=== PATIENT | male | born 1940 | race Caucasian/White ===

== ENCOUNTER 2020-06-18 00:14 | Day surgery (SDCO) | payer OTHER ==
[~2020-06-18 00:14] MED LIST: ATARAX25 MG PO; BUSPIRONE HCL15 MG PO; COUMADIN2 MG PO; FLOMAX0.4 MG PO; GUMMY1 EACH PO; HYDRALAZINE25 MG PO; LAMICTAL100 MG PO; LEVAQUIN500 MG PO; LEXAPRO 10MG TA10 MG PO; MEDROL 4MG DOSEP4 MG PO; NORCO 5-325 TA1 EACH PO; NORVASC5 MG PO; OMEPRAZOLE40 MG PO; PAXIL10 MG PO; PAXIL20 MG PO; PEPCID AC20 MG PO; PREDNISONE5 MG PO; PRINIVIL20 MG PO; TAMSULOSIN HCL0.4 MG PO; VITAMIN B-121000 MC1 PO; VITAMIN D400 UNI2 PO; XANAX0.25 MG PO; ZOFRAN4 MG SL; ZOFRAN8 MG PO; ZYTIGA500 MG PO
[2020-06-18 01:04] LABS: BASOPHIL 0.6 % (0-2); EOSINOPHIL 2.4 % (0-7); HCT 40.4 % (42.0-52.0); LYMPHOCYTE 13.9 % (15-48); MCH 30.8 pg (25.0-31.0); MCHC 32.2 g/dL (32.0-36.0); MCV 95.7 fL (78.0-100.0); MONOCYTE 8.8 % (0-12); NEUTROPHIL 73.9 % (41-80); NRBC 0; PLT 450 K/uL (150-400); RBC 4.22 M/uL (4.70-6.00); RDW 12.8 % (11.5-14.0); WBC 10.2 K/uL (4.0-10.5)
[2020-06-18 01:20] LABS: ALBUMIN 2.5 g/dL (3.4-5.0); BILIRUBIN - TOTAL 0.4 mg/dL (0.2-1.0); BUN/CREAT RATIO (CALC) 7.3 RATIO; CREATININE 1.09 mg/dL (0.67-1.17); GLOBULIN (CALCULATION) 4.2 g/dL; TOTAL PROTEIN 6.7 g/dL (6.4-8.2)
[2020-06-18 01:37] LABS: INR 1.49 (0.9-1.2); PROTHROMBIN TIME 17.1 SECONDS (11.4-13.6)
[2020-06-18 02:48] LABS: CORONAVIRUS 2019 SARS-COV-2 NEGATIVE (NEGATIVE)
[2020-06-18 02:49] LABS: INFLUENZA A NAA NEGATIVE (NEGATIVE)
[2020-06-18 04:53] LABS: BILIRUBIN NEGATIVE (NEGATIVE); BLOOD 3+ Ery/uL (NEGATIVE); COLOR YELLOW (YELLOW); GLUCOSE (U) NORMAL (NORMAL); LEUKOCYTES NEGATIVE Leu/uL (NEGATIVE); NITRITE NEGATIVE (NEGATIVE); PROTEIN NEGATIVE (NEGATIVE); SPECIFIC GRAVITY 1.015 (1.001-1.030); UROBILINOGEN 0.2 mg/dL (0.2-1.0)
[2020-06-18 04:54] LABS: CLARITY SLIGHTLY HAZY (CLEAR)
[2020-06-18 05:00] LABS: BACTERIA TRACE; SQUAMOUS EPITHELIAL CELLS RARE; URINARY RBC 20-50
[2020-06-18] MEDS ORDERED: ZYTIGA500 MG PO (11:31)
[2020-06-18] MEDS ORDERED: QUETIAPINE FUM300 MG PO (11:32)
[2020-06-18] MEDS ORDERED: INDERAL20 MG PO (11:34)
[2020-06-19 07:00] LABS: BASOPHIL 0.8 % (0-2); EOSINOPHIL 3.5 % (0-7); HCT 33.3 % (42.0-52.0); HGB 10.5 g/dl (13.2-18.0); LYMPHOCYTE 14.4 % (15-48); MCHC 31.5 g/dL (32.0-36.0); MCV 98.2 fL (78.0-100.0); MPV 9.1 fL (6.0-9.5); NRBC 0; PLT 334 K/uL (150-400); RBC 3.39 M/uL (4.70-6.00); RDW 13.1 % (11.5-14.0); WBC 7.2 K/uL (4.0-10.5)
[2020-06-19 07:08] LABS: INR 1.68 (0.9-1.2); PROTHROMBIN TIME 18.8 SECONDS (11.4-13.6)
[2020-06-19 07:16] LABS: BUN/CREAT RATIO (CALC) 5.4 RATIO; CREATININE 0.92 mg/dL (0.67-1.17); POTASSIUM 3.4 mmol/L (3.5-5.1)
[2020-06-19] MEDS ORDERED: PROTONIX 40MG T40 MG PO (11:26)
[2020-07-19] MEDS ORDERED: METRONIDAZOLE500 MG PO (13:06)
[2020-07-19] MEDS ORDERED: CIPRO500 MG PO (13:06)
[2020-07-19] MEDS ORDERED: PROTONIX 40MG T40 MG PO (13:06)
== END 2020-06-19 13:25 | disposition home or self-care (01) ==
LOC: FER 00:14 → FMS 04:52
PROVIDERS: Emergency Medicine; Internal Medicine; ADMIT Internal Medicine
DX: K29.80 Duodenitis without bleeding (principal); K21.9 Gastro-esophageal reflux disease without esophagitis; C61 Malignant neoplasm of prostate; C79.51 Secondary malignant neoplasm of bone; K44.9 Diaphragmatic hernia without obstruction or gangrene; I82.91 Chronic embolism and thrombosis of unspecified vein; I10 Essential (primary) hypertension; R19.7 Diarrhea, unspecified; R10.84 Generalized abdominal pain; Z86.718 Personal history of other venous thrombosis and embolism; Z79.01 Long term (current) use of anticoagulants; Z96.0 Presence of urogenital implants; Z20.822 Contact with and (suspected) exposure to COVID-19; Z87.891 Personal history of nicotine dependence; Z98.890 Other specified postprocedural states
CPT/HCPCS: 36415; 80048; 80053; 81001; 82150; 83690; 84484; 85025; 85610; 87339; 93005; C9113; G0378; J2405; J2550; J7030; Q9967; U0002

== ENCOUNTER 2020-06-22 12:32 | Emergency (ER) | payer OTHER ==
[~2020-06-22 12:32] MED LIST changes: +INDERAL20 MG PO; +PROTONIX 40MG T40 MG PO; +QUETIAPINE FUM300 MG PO
[2020-06-22 14:44] LABS: BASOPHIL 0.5 % (0-2); EOSINOPHIL 1.3 % (0-7); HCT 37.1 % (42.0-52.0); LYMPHOCYTE 9.1 % (15-48); MCH 31.1 pg (25.0-31.0); MCHC 32.3 g/dL (32.0-36.0); MCV 96.1 fL (78.0-100.0); MONOCYTE 5.9 % (0-12); MPV 9.1 fL (6.0-9.5); NEUTROPHIL 82.9 % (41-80); NRBC 0; PLT 428 K/uL (150-400); RBC 3.86 M/uL (4.70-6.00); RDW 13.2 % (11.5-14.0); WBC 8.7 K/uL (4.0-10.5)
[2020-06-22 14:59] LABS: INR 1.59 (0.9-1.2)
[2020-06-22 15:01] LABS: ALBUMIN 2.4 g/dL (3.4-5.0); BILIRUBIN - TOTAL 0.2 mg/dL (0.2-1.0); GLOBULIN (CALCULATION) 3.9 g/dL; TOTAL PROTEIN 6.3 g/dL (6.4-8.2)
[2020-06-22 15:25] LABS: BILIRUBIN NEGATIVE (NEGATIVE); BLOOD 1+ Ery/uL (NEGATIVE); CLARITY CLEAR (CLEAR); COLOR YELLOW (YELLOW); GLUCOSE (U) NORMAL (NORMAL); LEUKOCYTES NEGATIVE Leu/uL (NEGATIVE); NITRITE NEGATIVE (NEGATIVE); PROTEIN NEGATIVE (NEGATIVE); UROBILINOGEN 0.2 mg/dL (0.2-1.0)
[2020-06-22 15:33] LABS: SQUAMOUS EPITHELIAL CELLS RARE
[2020-06-22] MEDS ORDERED: ZOFRAN4 M1 PO (17:54)
[2020-07-19] MEDS ORDERED: METRONIDAZOLE500 MG PO (13:06)
[2020-07-19] MEDS ORDERED: CIPRO500 MG PO (13:06)
[2020-07-19] MEDS ORDERED: PROTONIX 40MG T40 MG PO (13:06)
== END 2020-06-22 18:27 | disposition home or self-care (01) ==
LOC: FER 12:32
PROVIDERS: Emergency Medicine
DX: R11.2 Nausea with vomiting, unspecified (principal); R19.7 Diarrhea, unspecified; R63.0 Anorexia; I10 Essential (primary) hypertension; Z86.718 Personal history of other venous thrombosis and embolism; Z85.46 Personal history of malignant neoplasm of prostate; Z79.01 Long term (current) use of anticoagulants; Z79.899 Other long term (current) drug therapy
CPT/HCPCS: 36415; 80053; 81001; 85025; 85610; 99284; J2405; J7040

== ENCOUNTER 2020-07-01 02:17 | Emergency (ER) | payer OTHER ==
[~2020-07-01 02:17] MED LIST changes: +ZOFRAN4 M1 PO
[2020-07-01 02:49] LABS: INR 1.43 (0.9-1.2); PROTHROMBIN TIME 16.6 SECONDS (11.4-13.6)
[2020-07-01 02:56] LABS: ALBUMIN 2.1 g/dL (3.4-5.0); BILIRUBIN - TOTAL 0.4 mg/dL (0.2-1.0); BUN/CREAT RATIO (CALC) 6.6 RATIO; CREATININE 1.22 mg/dL (0.67-1.17); GLOBULIN (CALCULATION) 3.8 g/dL; POTASSIUM 4.2 mmol/L (3.5-5.1); TOTAL PROTEIN 5.9 g/dL (6.4-8.2)
[2020-07-01 03:00] LABS: BASOPHIL 0.4 % (0-2); EOSINOPHIL 2.3 % (0-7); HGB 10.9 g/dl (13.2-18.0); LYMPHOCYTE 14.9 % (15-48); MCH 30.7 pg (25.0-31.0); MCHC 32.1 g/dL (32.0-36.0); MCV 95.8 fL (78.0-100.0); MONOCYTE 11.3 % (0-12); MPV 9.7 fL (6.0-9.5); NEUTROPHIL 70.7 % (41-80); NRBC 0; PLT 338 K/uL (150-400); RBC 3.55 M/uL (4.70-6.00); RDW 12.8 % (11.5-14.0); WBC 9.5 K/uL (4.0-10.5)
[2020-07-01 04:45] LABS: BILIRUBIN NEGATIVE (NEGATIVE); BLOOD 1+ Ery/uL (NEGATIVE); CLARITY CLEAR (CLEAR); COLOR YELLOW (YELLOW); GLUCOSE (U) NORMAL (NORMAL); LEUKOCYTES NEGATIVE Leu/uL (NEGATIVE); NITRITE NEGATIVE (NEGATIVE); PROTEIN NEGATIVE (NEGATIVE); SPECIFIC GRAVITY 1.015 (1.001-1.030); UROBILINOGEN 0.2 mg/dL (0.2-1.0)
[2020-07-01 04:48] LABS: SQUAMOUS EPITHELIAL CELLS RARE
[2020-07-01] MEDS ORDERED: ONDANSETRON ODT4 MG PO (06:01)
[2020-07-19] MEDS ORDERED: CIPRO500 MG PO (13:06)
[2020-07-19] MEDS ORDERED: PROTONIX 40MG T40 MG PO (13:06)
[2020-07-19] MEDS ORDERED: METRONIDAZOLE500 MG PO (13:06)
== END 2020-07-01 06:16 | disposition home or self-care (01) ==
LOC: FER 02:17
PROVIDERS: Emergency Medicine
DX: R55 Syncope and collapse (principal); R42 Dizziness and giddiness; R11.2 Nausea with vomiting, unspecified; F17.200 Nicotine dependence, unspecified, uncomplicated; Z86.718 Personal history of other venous thrombosis and embolism
CPT/HCPCS: 36415; 70450; 71045; 80053; 81001; 84484; 85025; 85610; 93005; J2405; J7030

== ENCOUNTER 2020-07-13 10:14 | Day surgery (SDCO) | payer OTHER ==
[~2020-07-13 10:14] MED LIST changes: +ONDANSETRON ODT4 MG PO
[2020-07-13 12:23] LABS: BASOPHIL 1.2 % (0-2); EOSINOPHIL 3.3 % (0-7); HCT 42.1 % (42.0-52.0); HGB 13.4 g/dl (13.2-18.0); LYMPHOCYTE 21.5 % (15-48); MCH 30.2 pg (25.0-31.0); MCHC 31.8 g/dL (32.0-36.0); NEUTROPHIL 60.8 % (41-80); NRBC 0; PLT 509 K/uL (150-400); RBC 4.43 M/uL (4.70-6.00); RDW 13.6 % (11.5-14.0); WBC 6.9 K/uL (4.0-10.5)
[2020-07-13 12:26] LABS: INR 1.87 (0.9-1.2); PROTHROMBIN TIME 20.5 SECONDS (11.4-13.6); PTT 30.3 SECONDS (22.2-34.7)
[2020-07-13 12:52] LABS: ALBUMIN 2.7 g/dL (3.4-5.0); BILIRUBIN - TOTAL 0.2 mg/dL (0.2-1.0); BUN/CREAT RATIO (CALC) 9.8 RATIO; CREATININE 1.12 mg/dL (0.67-1.17); GLOBULIN (CALCULATION) 3.6 g/dL; POTASSIUM 4.2 mmol/L (3.5-5.1); TOTAL PROTEIN 6.3 g/dL (6.4-8.2)
[2020-07-13 13:08] LABS: BILIRUBIN NEGATIVE (NEGATIVE); BLOOD TRACE-INTACT Ery/uL (NEGATIVE); CLARITY CLEAR (CLEAR); COLOR YELLOW (YELLOW); GLUCOSE (U) NORMAL (NORMAL); LEUKOCYTES TRACE Leu/uL (NEGATIVE); NITRITE NEGATIVE (NEGATIVE); PROTEIN TRACE (LOW) mg/dL (NEGATIVE); UROBILINOGEN 0.2 mg/dL (0.2-1.0)
[2020-07-13 13:15] LABS: LACTIC ACID 0.8 mmol/L (0.4-1.9)
[2020-07-13 13:18] LABS: SQUAMOUS EPITHELIAL CELLS RARE; URINARY RBC RARE; URINARY WBC RARE
[2020-07-13] MEDS ORDERED: WARFARIN SODIUM1 MG PO (17:17)
[2020-07-14 05:37] LABS: HCT 32.9 % (42.0-52.0); HGB 10.3 g/dl (13.2-18.0); MCH 29.9 pg (25.0-31.0); MCHC 31.3 g/dL (32.0-36.0); MCV 95.4 fL (78.0-100.0); MPV 8.8 fL (6.0-9.5); RBC 3.45 M/uL (4.70-6.00); RDW 13.8 % (11.5-14.0); WBC 6.5 K/uL (4.0-10.5)
[2020-07-14 05:48] LABS: INR 2.07 (0.9-1.2); PROTHROMBIN TIME 22.2 SECONDS (11.4-13.6)
[2020-07-14 05:54] LABS: BUN/CREAT RATIO (CALC) 7.9 RATIO; CREATININE 1.01 mg/dL (0.67-1.17); POTASSIUM 3.8 mmol/L (3.5-5.1)
[2020-07-14] MEDS ORDERED: CARAFATE1 GM PO (12:10)
[2020-07-14] MEDS ORDERED: PROTONIX 40MG T40 MG PO (12:10)
[2020-07-14] MEDS ORDERED: PHENERGAN12.5 M1 PO (12:11)
[2020-07-14] MEDS ORDERED: ZOFRAN4 M1 PO (12:11)
--- NOTE | 2020-07-14 13:18 | NUR ---
DR. ELIAS ORDERED FOR PT., DISCUSSED THIS WITH THE PATIENT. PT. DECLINED HH AT THIS TIME. ADVISED HIM THAT IF HE RECONSIDERES TO PLEASE CONTACT HIS PRIMARY PHYSCIAN. ADVISED ALESIA LEVINE.
[2020-07-14] MEDS ORDERED: WARFARIN SODIUM1 MG PO (13:42)
[2020-07-19] MEDS ORDERED: PROTONIX 40MG T40 MG PO (13:06)
[2020-07-19] MEDS ORDERED: METRONIDAZOLE500 MG PO (13:06)
[2020-07-19] MEDS ORDERED: CIPRO500 MG PO (13:06)
== END 2020-07-14 16:24 | disposition home or self-care (01) ==
LOC: FER 10:14 → FMS 15:04
PROVIDERS: Emergency Medicine; Hospitalist; ADMIT Internal Medicine
DX: K29.80 Duodenitis without bleeding (principal); I10 Essential (primary) hypertension; C76.3 Malignant neoplasm of pelvis; N40.0 Benign prostatic hyperplasia without lower urinary tract symptoms; K21.9 Gastro-esophageal reflux disease without esophagitis; K44.9 Diaphragmatic hernia without obstruction or gangrene; F17.210 Nicotine dependence, cigarettes, uncomplicated; R19.7 Diarrhea, unspecified; Z20.822 Contact with and (suspected) exposure to COVID-19; Z79.01 Long term (current) use of anticoagulants; Z86.718 Personal history of other venous thrombosis and embolism; Z98.890 Other specified postprocedural states; Z96.0 Presence of urogenital implants
CPT/HCPCS: 36415; 80048; 80053; 81001; 83605; 83690; 84145; 84484; 85025; 85610; 85730; 87040; 87088; 93005; 97116; 97161; 97165; 97530-GP; 97535; C9113; G0378; J2405; J7030; J7512; Q9967; U0002

== ENCOUNTER → 2020-07-19 | Day surgery (SDC) | payer OTHER ==
[~2020-07-19] MED LIST changes: +CARAFATE1 GM PO; +CIPRO500 MG PO; +METRONIDAZOLE500 MG PO; +PHENERGAN12.5 M1 PO; +WARFARIN SODIUM1 MG PO
[2020-07-19 10:37] LABS: PROTHROMBIN TIME 12.5 SECONDS (11.4-13.6); PTT 24.6 SECONDS (22.2-34.7)
== END | disposition home or self-care (01) ==
LOC: FAS 08:57
PROVIDERS: Student in an Organized Health Care Education/Training Program
DX: K26.3 Acute duodenal ulcer without hemorrhage or perforation (principal); D12.6 Benign neoplasm of colon, unspecified; K20.90 Esophagitis, unspecified without bleeding; K52.9 Noninfective gastroenteritis and colitis, unspecified; K64.4 Residual hemorrhoidal skin tags; I10 Essential (primary) hypertension; F41.1 Generalized anxiety disorder; F32.9 Major depressive disorder, single episode, unspecified; F17.200 Nicotine dependence, unspecified, uncomplicated; N40.0 Benign prostatic hyperplasia without lower urinary tract symptoms; I82.409 Acute embolism and thrombosis of unspecified deep veins of unspecified lower extremity; Z79.899 Other long term (current) drug therapy; Z12.11 Encounter for screening for malignant neoplasm of colon; Z79.01 Long term (current) use of anticoagulants; Z86.718 Personal history of other venous thrombosis and embolism; Z98.890 Other specified postprocedural states; Z20.822 Contact with and (suspected) exposure to COVID-19; Z96.0 Presence of urogenital implants
CPT/HCPCS: 36415; 85610; 85730; 88305; J2704; J7120

== ENCOUNTER 2021-01-20 23:50 | Inpatient (IN) | payer OTHER ==
[~2021-01-20] VITALS: Ht 170.2 cm; Wt 51.1 kg
[2021-01-21 00:10] LABS: BASOPHIL 1.2 % (0-2); HCT 29.7 % (42.0-52.0); HGB 9.6 g/dl (13.2-18.0); MCH 31.2 pg (25.0-31.0); MCHC 32.3 g/dL (32.0-36.0); MCV 96.4 fL (78.0-100.0); MONOCYTE 9.4 % (0-12); NRBC 0; PLT 248 K/uL (150-400); RBC 3.08 M/uL (4.70-6.00); RDW 12.9 % (11.5-14.0); WBC 7.8 K/uL (4.0-10.5)
[2021-01-21 00:37] LABS: ALBUMIN 1.7 g/dL (3.4-5.0); ALKALINE PHOSHATASE 67 U/L (46-116); ALT <6 U/L (16-63); AST 12 U/L (15-37); BILIRUBIN - TOTAL 0.1 mg/dL (0.2-1.0); BUN 8 mg/dL (7-18); CHLORIDE 111 mmol/L (98-107); CO2 (BICARBONATE) 21 mmol/L (21-32); GLOBULIN (CALCULATION) 3.2 g/dL; GLUCOSE 90 mg/dL (74-106); LIPASE 125 U/L (73-393); POTASSIUM 3.1 mmol/L (3.5-5.1); TOTAL PROTEIN 4.9 g/dL (6.4-8.2)
[2021-01-21 00:40] LABS: LACTIC ACID 0.5 mmol/L (0.4-1.9)
[2021-01-21 00:43] LABS: PRO-BNP 493 pg/mL (<450)
[2021-01-21 01:33] LABS: BILIRUBIN NEGATIVE (NEGATIVE); BLOOD 1+ Ery/uL (NEGATIVE); CLARITY CLEAR (CLEAR); COLOR YELLOW (YELLOW); GLUCOSE (U) NORMAL (NORMAL); LEUKOCYTES TRACE Leu/uL (NEGATIVE); NITRITE NEGATIVE (NEGATIVE); PROTEIN TRACE (LOW) mg/dL (NEGATIVE); SPECIFIC GRAVITY 1.015 (1.001-1.030); UROBILINOGEN 0.2 mg/dL (0.2-1.0)
[2021-01-21 01:38] LABS: BACTERIA TRACE; URINARY WBC RARE
[2021-01-21 08:35] LABS: BASOPHIL 1.7 % (0-2); EOSINOPHIL 7.3 % (0-7); HCT 32.9 % (42.0-52.0); HGB 10.7 g/dl (13.2-18.0); LYMPHOCYTE 24.7 % (15-48); MCH 30.9 pg (25.0-31.0); MCHC 32.5 g/dL (32.0-36.0); MCV 95.1 fL (78.0-100.0); MONOCYTE 11.7 % (0-12); MPV 8.7 fL (6.0-9.5); NEUTROPHIL 54.2 % (41-80); NRBC 0; PLT 266 K/uL (150-400); RBC 3.46 M/uL (4.70-6.00); RDW 12.8 % (11.5-14.0); WBC 5.2 K/uL (4.0-10.5)
[2021-01-21 08:55] LABS: IRON % SATURATION 22.8 %SAT (20-50)
[2021-01-21 09:36] LABS: BUN/CREAT RATIO (CALC) 6.2 RATIO; CREATININE 0.97 mg/dL (0.67-1.17); FOLIC ACID (SERUM) 46.9 ng/mL (8.6-58.9); MAGNESIUM 1.7 mg/dL (1.8-2.4); POTASSIUM 4.5 mmol/L (3.5-5.1)
[2021-01-21] MEDS ORDERED: MARINOL5 MG PO (10:19)
[2021-01-21] MEDS ORDERED: HYDRALAZINE25 MG PO (10:20)
[2021-01-22 06:23] LABS: BASOPHIL 0.6 % (0-2); EOSINOPHIL 5.6 % (0-7); HCT 30.7 % (42.0-52.0); HGB 9.8 g/dl (13.2-18.0); LYMPHOCYTE 22.3 % (15-48); MCH 30.8 pg (25.0-31.0); MCHC 31.9 g/dL (32.0-36.0); MCV 96.5 fL (78.0-100.0); MONOCYTE 6.3 % (0-12); MPV 9.4 fL (6.0-9.5); NEUTROPHIL 64.8 % (41-80); NRBC 0; PLT 256 K/uL (150-400); RBC 3.18 M/uL (4.70-6.00); RDW 12.9 % (11.5-14.0); WBC 5.4 K/uL (4.0-10.5)
[2021-01-22 07:14] LABS: BUN/CREAT RATIO (CALC) 6.4 RATIO; CREATININE 1.09 mg/dL (0.67-1.17); PHOSPHORUS 3.3 mg/dL (2.6-4.7); POTASSIUM 4.6 mmol/L (3.5-5.1)
[2021-01-22 07:15] LABS: MAGNESIUM 2.3 mg/dL (1.8-2.4)
[2021-01-23 06:25] LABS: HGB 9.4 g/dl (13.2-18.0); MCHC 32.4 g/dL (32.0-36.0); MCV 95.7 fL (78.0-100.0); MPV 9.5 fL (6.0-9.5); RBC 3.03 M/uL (4.70-6.00)
[2021-01-25] MEDS ORDERED: FLORINEF0.1 MG PO (13:29)
== END 2021-01-25 15:45 | DRG 312 ==
LOC: FER 23:50 → FMS 01-21 11:23
PROVIDERS: Emergency Medicine Emergency Medical Services; Internal Medicine Cardiovascular Disease; Nurse Practitioner; ADMIT Internal Medicine
DX: I95.1 Orthostatic hypotension (principal); C79.51 Secondary malignant neoplasm of bone; N13.30 Unspecified hydronephrosis; E87.6 Hypokalemia; Z20.822 Contact with and (suspected) exposure to COVID-19; I10 Essential (primary) hypertension; E86.0 Dehydration; D53.9 Nutritional anemia, unspecified; C61 Malignant neoplasm of prostate; J40 Bronchitis, not specified as acute or chronic; Z96.0 Presence of urogenital implants; Z90.49 Acquired absence of other specified parts of digestive tract; Z98.890 Other specified postprocedural states; Z87.891 Personal history of nicotine dependence; Z86.718 Personal history of other venous thrombosis and embolism
CPT/HCPCS: 36415; 70450; 71250; 80048; 80053; 81001; 82607; 82728; 82746; 83540; 83550; 83605; 83690; 83735; 83880; 84100; 84145; 84443; 84484; 85025; 93005; 93880; 94640; 96372; 97162; 97165; 97530; 97530-GP; J0456; J1650; J2405; J2550; J2916; J3420; J3475; J3480; J7050; J7120; Q9967; U0002

== ENCOUNTER 2021-08-12 10:31 | Day surgery (SDCO) | payer OTHER ==
[~2021-08-12] VITALS: Ht 170.2 cm; Wt 47.3 kg
[~2021-08-12 10:31] MED LIST changes: +FLORINEF0.1 MG PO; +MARINOL5 MG PO
[2021-08-12 11:52] LABS: BASOPHIL 1.9 % (0-2); EOSINOPHIL 9.6 % (0-7); HCT 38.1 % (42.0-52.0); HGB 12.7 g/dl (13.2-18.0); LYMPHOCYTE 21.7 % (15-48); MCH 28.4 pg (25.0-31.0); MCHC 33.3 g/dL (32.0-36.0); MCV 85.2 fL (78.0-100.0); MONOCYTE 10.8 % (0-12); MPV 9.9 fL (6.0-9.5); NEUTROPHIL 55.7 % (41-80); NRBC 0; PLT 291 K/uL (150-400); RBC 4.47 M/uL (4.70-6.00); RDW 12.1 % (11.5-14.0); WBC 7.8 K/uL (4.0-10.5)
[2021-08-12 11:59] LABS: ALBUMIN 2.7 g/dL (3.4-5.0); BILIRUBIN - TOTAL 0.5 mg/dL (0.2-1.0); BUN/CREAT RATIO (CALC) 14.3 RATIO; CREATININE 1.26 mg/dL (0.67-1.17); GLOBULIN (CALCULATION) 3.9 g/dL; MAGNESIUM 1.2 mg/dL (1.8-2.4); POTASSIUM 3.3 mmol/L (3.5-5.1); TOTAL PROTEIN 6.6 g/dL (6.4-8.2)
[2021-08-12 12:55] LABS: BILIRUBIN NEGATIVE (NEGATIVE); BLOOD 2+ Ery/uL (NEGATIVE); COLOR YELLOW (YELLOW); GLUCOSE (U) NORMAL (NORMAL); LEUKOCYTES 1+ Leu/uL (NEGATIVE); NITRITE NEGATIVE (NEGATIVE); PROTEIN 1+ mg/dL (NEGATIVE); SPECIFIC GRAVITY 1.025 (1.001-1.030); UROBILINOGEN 0.2 mg/dL (0.2-1.0)
[2021-08-12 12:56] LABS: CLARITY HAZY (CLEAR)
[2021-08-12 13:02] LABS: URINARY RBC 20-50
[2021-08-12 13:03] LABS: BACTERIA TRACE
[2021-08-12 13:04] LABS: AMORPHOUS URATES CRYSTALS MODERATE
[2021-08-12 17:40] LABS: BASOPHIL 1.2 % (0-2); EOSINOPHIL 7.2 % (0-7); HCT 38.9 % (42.0-52.0); HGB 13.2 g/dl (13.2-18.0); LYMPHOCYTE 21.6 % (15-48); MCH 28.3 pg (25.0-31.0); MCHC 33.9 g/dL (32.0-36.0); MCV 83.3 fL (78.0-100.0); MONOCYTE 9.5 % (0-12); MPV 9.3 fL (6.0-9.5); NEUTROPHIL 60.4 % (41-80); PLT 278 K/uL (150-400); RBC 4.67 M/uL (4.70-6.00); WBC 8.8 K/uL (4.0-10.5)
[2021-08-12 17:56] LABS: BUN/CREAT RATIO (CALC) 12.9 RATIO; CREATININE 1.24 mg/dL (0.67-1.17); MAGNESIUM 1.5 mg/dL (1.8-2.4)
[2021-08-12 18:09] LABS: BAND 2 % (0-10); EOSINOPHIL(M) 8 % (0-7); LYMPHOCYTE(M) 20 % (15-48); MONOCYTE(M) 6 % (0-12); NEUTROPHILS(M) 64 % (41-80); TOTAL CELL COUNT 100
[2021-08-12 18:10] LABS: PLATELET ESTIMATE NORMAL; PLATELET MORPHOLOGY NORMAL
[2021-08-12 18:11] LABS: NRBC 0
[2021-08-12] MEDS ORDERED: 8 HOUR650 MG PO (18:36)
[2021-08-12] MEDS ORDERED: ASPIRIN EC81 MG PO (18:36)
[2021-08-12] MEDS ORDERED: BIOFREEZE473 ML TOP (18:37)
[2021-08-12] MEDS ORDERED: DESVENLAFAXINE50 MG PO (18:38)
[2021-08-12] MEDS ORDERED: COLACE100 M1 PO (18:39)
[2021-08-12] MEDS ORDERED: ATARAX25 MG PO (18:40)
[2021-08-12] MEDS ORDERED: ANTIVERT25 MG PO (18:41)
[2021-08-12] MEDS ORDERED: MIRALAX17 GM PO (18:42)
[2021-08-12] MEDS ORDERED: MULTI COMPLETE1 EACH PO (18:43)
[2021-08-12] MEDS ORDERED: PYRIDIUM200 MG PO (18:43)
[2021-08-12] MEDS ORDERED: POTASSIUM CHLO20 ME1 PO (18:45)
[2021-08-12] MEDS ORDERED: REQUIP0.25 MG PO (18:46)
[2021-08-12] MEDS ORDERED: TRAZODONE 100M100 MG PO (18:47)
[2021-08-12] MEDS ORDERED: VITAMIN D3125 MCG/1 PO (18:48)
[2021-08-12] MEDS ORDERED: ONDANSETRON HCL4 MG PO (18:50)
[2021-08-13] MEDS ORDERED: MACROBID100 MG PO (10:16)
[2021-08-13] MEDS ORDERED: MAG-OXIDE 400M400 MG PO (10:16)
== END 2021-08-13 17:30 ==
LOC: FER 10:31 → FMS 15:42
PROVIDERS: Emergency Medicine; ADMIT Family Medicine
DX: G93.41 Metabolic encephalopathy (principal); N30.01 Acute cystitis with hematuria; N17.9 Acute kidney failure, unspecified; I12.9 Hypertensive chronic kidney disease with stage 1 through stage 4 chronic kidney disease, or unspecified chronic kidney disease; N18.2 Chronic kidney disease, stage 2 (mild); E83.52 Hypercalcemia; E87.6 Hypokalemia; E83.42 Hypomagnesemia; F03.90 Unspecified dementia, unspecified severity, without behavioral disturbance, psychotic disturbance, mood disturbance, and anxiety; E86.0 Dehydration; Z85.46 Personal history of malignant neoplasm of prostate; Z20.822 Contact with and (suspected) exposure to COVID-19
CPT/HCPCS: 36415; 70450; 80048; 80053; 81001; 83735; 85025; 87088; 93005; 94010; 97166; 97535; G0378; J1650; J2543; J3475; J7030; U0002